=== PATIENT | male | born 1950 | race Caucasian/White ===

== ENCOUNTER → 2016-09-23 | Day surgery (SDC) | payer BC ==
[~2016-09-23] VITALS: Ht 182.9 cm; Wt 85.0 kg
[~2016-09-23] MED LIST: ASPI81TA28 PO; ATV/1 PO; BECL0.3A INH; CARB1SOL OP; CLIN300C2 PO; COSYNTROPIN INJ 1 MCG in SYRINGE 0 ML IV ONE; COSYNTROPIN IV SCH; DIPH25CA65 PO; FAMO20TA9 PO; FINA5TAB PO; GABA-113 PO; IBUP-1050 PO; LINA1TAB PO; LISI5TAB3 PO; METF-384 PO; METF1TAB53 PO; MYCO500T4 PO; OXYC-57 PO; POLY335019 PO; PROM1TAB6 PO; SENNTAB23 PO; TERA1CAP63 PO; TRIA0.1O12 TOP
[2016-09-23 08:13] VITALS: BP 119/70; PULSE 70; TEMP 36.1; O2SAT 97; Ht 182.9 cm; Wt 85.0 kg
[2016-09-23 09:40] VITALS: BP 122/74; PULSE 80; TEMP 36.6; O2SAT 96
== END | disposition home or self-care (01) ==
LOC: C.MTU 07:33
PROVIDERS: ATTEND Internal Medicine Nephrology
DX: E27.40 Unspecified adrenocortical insufficiency (principal); E87.1 Hypo-osmolality and hyponatremia

== ENCOUNTER → 2016-12-23 | Outpatient (CLI) | payer BC ==
[~2016-12-23] MED LIST changes: -CLIN300C2 PO; -COSYNTROPIN INJ 1 MCG in SYRINGE 0 ML IV ONE; -COSYNTROPIN IV SCH; -FAMO20TA9 PO; +GADAVIST IV PRN; -OXYC-57 PO
--- NOTE | 2016-12-23 14:34 | DIAGNOSTIC IMAGING REPORT ---
PITUITARY MRI COMBO HISTORY: ADRENAL INSUFFICIENCY,HYPONATREMIA TECHNIQUE: Multiplanar multisequence MRI of the pituitary gland was performed both before and after the intravenous administration of contrast. COMPARISON STUDY: None. FINDINGS: There is a 4 mm T2 hyperintense nonenhancing lesion along the anterior aspect of the pituitary gland. Otherwise, the pituitary gland is within normal limits. No enhancing masses identified. The pituitary stalk is normal in course and caliber. IMPRESSION: A 4 mm T2 hyperintense nonenhancing lesion within the anterior aspect of the pituitary gland consistent with a cyst. This favors a Rathke's cleft cyst. Electronically signed by: Cr Vann M.D. 12/23/2016 2:32 PM Dictated Date/Time: 12/23/2016 2:21 PM
== END | disposition home or self-care (01) ==
LOC: C.MRI 12:21
PROVIDERS: ATTEND Internal Medicine Endocrinology, Diabetes & Metabolism
DX: E27.40 Unspecified adrenocortical insufficiency (principal); E87.1 Hypo-osmolality and hyponatremia; E23.7 Disorder of pituitary gland, unspecified

== ENCOUNTER 2020-05-27 18:24 | Inpatient (IN) ==
[2020-05-27] MEDS ORDERED: PIPERACILLIN/TAZOBACTAM 4.5 GM/120 ML BAG IV ONE (18:48)
[2020-05-27] MEDS ORDERED: PIPERACILL/TAZOBAC CONSULT ACTIVE PRN (18:48)
--- NOTE | 2020-05-27 18:52 | Emergency Department Note ---
Impression & Plan Sepsis, Hypomagnesemia, Acute hyponatremia, Acute dehydration ED Provider Note NAME: RUPAL MILES AGE: 69 SEX: M : 1950 ARRIVES VIA: Walk-In INFORMANT: Patient, ED PROVIDER(S): Tony Sanchez MD Chief Complaint: Fever, weakness, confusion HPI: Patient does present with increasing weakness as well as fever. The patient was recently seen in the outpatient setting on Tuesday this was thought to be potentially due to taking steroids as he was placed on these by his PCP had some constipation and urinary retention patient reportedly has had some increasing confusion and fever. The patient does have mild nonspecific frontal headache approximate 4 out of 10 in nature. The patient did have some falls back on Tuesday. The patient has no known sick contacts is not vaccinated for Covid. Denies any chest pains or abdominal pain. Patient does endorse drinking 1 to 2 glasses of wine daily every day. Patient reportedly does have history of low sodium. Patient had urinalysis completed back on May 24 which was negative for blood or infection. Patient had a KUB completed which did not show evidence of bowel obstruction. ROS: See HPI for pertinent positives and negatives. A total of 10 systems were reviewed and otherwise negative. Past medical history: See below Surgical history: See below Social history: See below Physical Exam: GENERAL: Mildly ill in appearance, wearing glasses and a mask. Thin. EYE EXAM: Normal conjunctiva. PERRL, no anisocoria and EOM's grossly intact w/o pain. NECK: Supple, no nuchal rigidity, no adenopathy, non-tender. No signs of meningismus. LUNGS: Clear to auscultation. Normal chest wall mechanics. HEART: Tachycardic and regular, no MRG. ABDOMEN: Abdomen soft, non-tender, normo-active bowel sounds, no masses, no rebound or guarding. BACK: No CVA TTP. SKIN: No rashes and no bruising. UPPER EXTREMITIES: Upper extremities are grossly normal. LOWER EXTREMITIES: Grossly normal, no edema. NEURO EXAM: A&O x3, cranial nerves II-XII grossly intact, normal speech, moves all 4 extremities on command w/o issue. Differential diagnoses: Sepsis, UTI, pneumonia, metabolic, electrolyte abnormalities, cardiac sources, intracerebral event, toxicologic, neurologic, as well as other pathologies. Course: Patient was seen and evaluated the bedside. Full history physical exam was performed. EKG: Indication: Tachycardia Imaging Studies: See below Cardiac monitoring: An order was placed for continuous cardiac monitoring. The monitor shows a rate of 124 with sinus tachycardia rhythm. MDM: Patient did present with concern for confusion and fever. Blood work is obtained along with antibiotics and blood cultures. The patient was given IV fluids. Patient did have improvement in his fever and tachycardia. The patient is on mycophenolate for history of pemphigoid. This is per pharmacy review. Patient was covered with broad-spectrum antibiotics Zosyn and vancomycin. Covid negative. Chest x-ray clear. Patient has no abdominal pain. The patient did have a white count of 18 with hemoglobin 11.5. Kidney function is unremarkable with low sodium at 124. No priors for comparison but the patient does have a prior history of that. Magnesium slightly low at 1.3. This was ordered for replacement. Troponin not elevated. Ammonia within normal limits. MRSA screen negative. Pro-Tio not elevated. Given the patient's history of mycophenolate with fever and tachycardia with a white count I did talk with the on-call hospitalist and the patient was admitted to the medicine service by Dr. Bell. Past Med/Surg History Medical History (Updated 05/30/20 @ 00:07 by Background Daemon) Acute dehydration Acute hyponatremia BPH (benign prostatic hyperplasia) Bullous pemphigoid Chronic radicular lumbar pain Dehiscence of laminectomy incision Diabetes Foot drop, right Histoplasmosis retinitis HTN (hypertension) Hypertension Hypomagnesemia Hyponatremia Hyponatremia Leg pain, right Lumbar post-laminectomy syndrome Right foot sprain Sepsis Surgical History S/P lumbar laminectomy Social History Smoking Status: Never smoker Second Hand Exposure: No; Hx Alcohol Use: No Hx Substance Use: No Preferred Language: Slovenian Communication Ability: Effective Hearing Ability: Normal Salt Manager Required: No Beliefs That Will Affect Care: None Current Living Situation: Spouse Feels Safe at Home: Yes caffeine: Yes during the past year weight has: remained stable Assistive Devices: Cane Allergies Allergies Allergy/AdvReac Type Severity Reaction Status Date / Time adhesive Allergy Unknown very Verified 05/27/20 21:01 senstive skin Home Meds Home Medications Medication Instructions Recorded Confirmed carboxymethylcellulose sodium 1 % 2 drops OP DAILY PRN 10/24/17 05/27/20 eye liquid gel drops finasteride 5 mg tablet 5 mg PO DAILY 10/24/17 05/27/20 linagliptin 5 mg tablet 5 mg PO QAM 10/24/17 05/27/20 lisinopril 5 mg tablet 5 mg PO DAILY 10/24/17 05/27/20 terazosin 10 mg capsule 10 mg PO HS cap 10/24/17 05/27/20 triamcinolone acetonide 0.1 % 1 appln TOP BID PRN 10/24/17 05/27/20 topical ointment furosemide 20 mg tablet 20 mg PO DAILY 10/27/17 05/27/20 metformin 1,000 mg tablet 1,000 mg PO QAM tab 10/27/17 05/27/20 sodium chloride 1 gram tablet 2,000 mg PO TID tab 10/27/17 05/27/20 mycophenolate mofetil 500 mg tablet 1,000 mg PO BID PRN tab 01/23/18 05/27/20 gabapentin 300 mg capsule 300 mg PO AMHS cap 11/20/19 05/27/20 metformin 1,500 mg PO QPM 05/27/20 05/27/20 Previous Rx's Medication Instructions Recorded ciprofloxacin HCl 500 mg PO BID #14 tab 05/29/20 Results & Data (ED) Vital Signs Vital Signs - 24 hr 05/27/20 18:35 05/27/20 18:43 05/27/20 18:44 Temperature 38.4 C H Temperature Source Temporal Artery Scan Pulse Rate 121 H 137 H Pulse Rate [Apical] 124 H Pulse Rate from SpO2 Sensor Pulse Rhythm Respiratory Rate 16 26 H 25 H Respiratory Effort / Characteristics Non-Labored Spontaneous Respiratory Depth Normal Respiratory Pattern Regular Blood Pressure 115/65 122/75 Blood Pressure [Left Arm] 122/75 Blood Pressure Mean 81 90 Blood Pressure Mean [Left Arm] 90 Blood Pressure Position [Left Arm] Sitting Pulse Oximetry 94 97 Oxygen Delivery Method Room Air Sepsis Recent Fever Within 48 Hours Yes Sepsis New/Unexplained Change in Mental Status N/A Sepsis Action Taken by Nursing Physician Notified 05/27/20 18:47 05/27/20 18:50 05/27/20 19:00 Temperature Temperature Source Pulse Rate 134 H 122 H 112 H Pulse Rate [Apical] Pulse Rate from SpO2 Sensor Pulse Rhythm Respiratory Rate 20 25 H 21 Respiratory Effort / Characteristics Respiratory Depth Respiratory Pattern Blood Pressure Blood Pressure [Left Arm] Blood Pressure Mean Blood Pressure Mean [Left Arm] Blood Pressure Position [Left Arm] Pulse Oximetry Oxygen Delivery Method Sepsis Recent Fever Within 48 Hours Sepsis New/Unexplained Change in Mental Status Sepsis Action Taken by Nursing 05/27/20 19:10 05/27/20 19:14 05/27/20 19:15 Temperature Temperature Source Pulse Rate 107 H 106 H 105 H Pulse Rate [Apical] Pulse Rate from SpO2 Sensor 108 H 106 H Pulse Rhythm Respiratory Rate 15 18 20 Respiratory Effort / Characteristics Respiratory Depth Respiratory Pattern Blood Pressure 139/77 136/79 Blood Pressure [Left Arm] Blood Pressure Mean 97 98 Blood Pressure Mean [Left Arm] Blood Pressure Position [Left Arm] Pulse Oximetry 96 96 Oxygen Delivery Method Sepsis Recent Fever Within 48 Hours Sepsis New/Unexplained Change in Mental Status Sepsis Action Taken by Nursing 05/27/20 19:17 05/27/20 19:20 05/27/20 19:30 Temperature Temperature Source Pulse Rate 114 H 106 H 107 H Pulse Rate [Apical] Pulse Rate from SpO2 Sensor 106 H Pulse Rhythm Regular Respiratory Rate 20 21 21 Respiratory Effort / Characteristics Respiratory Depth Respiratory Pattern Blood Pressure 151/84 H Blood Pressure [Left Arm] Blood Pressure Mean 106 Blood Pressure Mean [Left Arm] Blood Pressure Position [Left Arm] Pulse Oximetry 98 98 Oxygen Delivery Method Room Air Sepsis Recent Fever Within 48 Hours Sepsis New/Unexplained Change in Mental Status Sepsis Action Taken by Nursing 05/27/20 19:31 05/27/20 19:40 05/27/20 19:45 Temperature Temperature Source Pulse Rate 108 H 100 H 100 H Pulse Rate [Apical] Pulse Rate from SpO2 Sensor Pulse Rhythm Respiratory Rate 21 23 20 Respiratory Effort / Characteristics Respiratory Depth Respiratory Pattern Blood Pressure 139/82 Blood Pressure [Left Arm] Blood Pressure Mean 101 Blood Pressure Mean [Left Arm] Blood Pressure Position [Left Arm] Pulse Oximetry Oxygen Delivery Method Sepsis Recent Fever Within 48 Hours Sepsis New/Unexplained Change in Mental Status Sepsis Action Taken by Nursing 05/27/20 19:50 05/27/20 19:52 05/27/20 20:00 Temperature Temperature Source Pulse Rate 101 H 95 H Pulse Rate [Apical] Pulse Rate from SpO2 Sensor Pulse Rhythm Respiratory Rate 20 20 21 Respiratory Effort / Characteristics Non-Labored Respiratory Depth Respiratory Pattern Blood Pressure 140/80 Blood Pressure [Left Arm] Blood Pressure Mean 100 Blood Pressure Mean [Left Arm] Blood Pressure Position [Left Arm] Pulse Oximetry 98 Oxygen Delivery Method Room Air Sepsis Recent Fever Within 48 Hours Sepsis New/Unexplained Change in Mental Status Sepsis Action Taken by Nursing 05/27/20 20:01 05/27/20 20:10 05/27/20 20:15 Temperature Temperature Source Pulse Rate 95 H 96 H 92 H Pulse Rate [Apical] Pulse Rate from SpO2 Sensor Pulse Rhythm Respiratory Rate 22 19 19 Respiratory Effort / Characteristics Respiratory Depth Respiratory Pattern Blood Pressure 119/76 Blood Pressure [Left Arm] Blood Pressure Mean 90 Blood Pressure Mean [Left Arm] Blood Pressure Position [Left Arm] Pulse Oximetry Oxygen Delivery Method Sepsis Recent Fever Within 48 Hours Sepsis New/Unexplained Change in Mental Status Sepsis Action Taken by Nursing 05/27/20 20:20 Temperature 37.6 C H Temperature Source Pulse Rate 91 H Pulse Rate [Apical] Pulse Rate from SpO2 Sensor Pulse Rhythm Respiratory Rate 17 Respiratory Effort / Characteristics Respiratory Depth Respiratory Pattern Blood Pressure Blood Pressure [Left Arm] Blood Pressure Mean Blood Pressure Mean [Left Arm] Blood Pressure Position [Left Arm] Pulse Oximetry Oxygen Delivery Method Sepsis Recent Fever Within 48 Hours Sepsis New/Unexplained Change in Mental Status Sepsis Action Taken by [facility] Medications Current Medication List: was personally reviewed by me Laboratory Data Attestation: I reviewed the patient's lab results. Result diagrams: 05/28/20 06:29 05/28/20 06:29 Lab Results 05/27/20 05/27/20 05/27/20 Range/Units 18:57 18:57 18:57 WBC 18.94 H (4.8-10.8) K/uL RBC 3.27 L (4.7-6.1) M/uL Hgb 11.5 L (14.0-18.0) g/dL Hct 31.1 L (42-52) % MCV 95.1 (80-100) fL MCH 35.2 H (25-34) pg MCHC 37.0 H (32-36) g/dL RDW Std Deviation 41.1 (36.4-46.3) fL RDW Coeff of Ike 11.9 (11.5-14.5) % Plt Count 214 (130-400) K/uL MPV 8.9 (7.4-10.4) fL Immature Gran % (Auto) 0.3 % Neut % (Auto) 88.2 % Lymph % (Auto) 7.0 % [place] % (Auto) 4.3 % Eos % (Auto) 0.1 % Baso % (Auto) 0.1 % Neut # (Auto) 16.71 H (1.4-6.5) K/uL Lymph # (Auto) 1.33 (1.2-3.4) K/uL [place] # (Auto) 0.82 H (0.11-0.59) K/uL Eos # (Auto) 0.02 (0-0.5) K/uL Baso # (Auto) 0.01 (0-0.2) K/uL Immature Gran # (Auto) 0.05 H (0.00-0.02) K/uL PT 9.8 (9.0-12.0) Seconds INR 1.0 (0.9-1.1) APTT 26.6 (21.0-31.0) Seconds PTT Ratio 1.0 Sodium 124 L (136-145) mmol/L Potassium 3.7 (3.5-5.1) mmol/L Chloride 92 L (98-107) mmol/L Carbon Dioxide 25 (21-32) mmol/L Anion Gap 8.0 (3-11) BUN 13 (7-18) mg/dl Creatinine 1.38 (0.6-1.4) mg/dl Est Cr Clr Drug Dosing 53.6 ml/min Est GFR ( Amer) 60.9 Est GFR (Non-Af Amer) 52.5 BUN/Creatinine Ratio 9.3 L (10-20) Glucose 227 H (70-99) mg/dl Osmolality (280-300) mOsm/kg Lactate (0.4-2.0) mmol/L Calcium 9.0 (8.5-10.1) mg/dl Magnesium 1.3 L (1.8-2.4) mg/dl Total Bilirubin 0.7 (0.2-1) mg/dl AST 9 L (15-37) U/L ALT 21 (12-78) U/L Alkaline Phosphatase 76 (45-117) U/L Ammonia (11-32) umol/L Troponin I < 0.015 (0-0.045) ng/ml Total Protein 6.4 (6.4-8.2) gm/dl Albumin 3.3 L (3.4-5.0) gm/dl Globulin 3.1 (2.5-4.0) gm/dl Albumin/Globulin Ratio 1.1 (0.9-2) Procalcitonin (0-0.5) ng/ml Urine Color Urine Appearance (Clear) Urine pH (4.5-7.5) Ur Specific Harris (1.000-1.030) Urine Protein (Negative) Urine Glucose (UA) (Negative) Urine Ketones (Negative) Urine Blood (Negative) Urine Nitrite (Negative) Urine Bilirubin (Negative) Urine Urobilinogen (Negative) Ur Leukocyte Esterase (Negative) Urine WBC (Auto) (0-5) /hpf Urine RBC (Auto) (0-4) /hpf U Hyaline Cast (Auto) (0-5) /lpf U Epithel Cells (Auto) (0-5) /lpf Urine Bacteria (Auto) (Negative) Urine Osmolality (500-800) mOsm/kg Nasal Screen MRSA (PCR) (Negative) COVID-19 Eval Order SARS-CoV-2 (PCR) (Negative) Influenza Type A (PCR) (Neg) Influenza Type B (PCR) (Neg) RSV (RT-PCR) (Neg) 05/27/20 05/27/20 05/27/20 Range/Units 18:57 19:18 19:18 WBC (4.8-10.8) K/uL RBC (4.7-6.1) M/uL Hgb (14.0-18.0) g/dL Hct (42-52) % MCV (80-100) fL MCH (25-34) pg MCHC (32-36) g/dL RDW Std Deviation (36.4-46.3) fL RDW Coeff of Ike (11.5-14.5) % Plt Count (130-400) K/uL MPV (7.4-10.4) fL Immature Gran % (Auto) % Neut % (Auto) % Lymph % (Auto) % [place] % (Auto) % Eos % (Auto) % Baso % (Auto) % Neut # (Auto) (1.4-6.5) K/uL Lymph # (Auto) (1.2-3.4) K/uL [place] # (Auto) (0.11-0.59) K/uL Eos # (Auto) (0-0.5) K/uL Baso # (Auto) (0-0.2) K/uL Immature Gran # (Auto) (0.00-0.02) K/uL PT (9.0-12.0) Seconds INR (0.9-1.1) APTT (21.0-31.0) Seconds PTT Ratio Sodium (136-145) mmol/L Potassium (3.5-5.1) mmol/L Chloride (98-107) mmol/L Carbon Dioxide (21-32) mmol/L Anion Gap (3-11) BUN (7-18) mg/dl Creatinine (0.6-1.4) mg/dl Est Cr Clr Drug Dosing ml/min Est GFR ( Amer) Est GFR (Non-Af Amer) BUN/Creatinine Ratio (10-20) Glucose (70-99) mg/dl Osmolality (280-300) mOsm/kg Lactate 1.7 (0.4-2.0) mmol/L Calcium (8.5-10.1) mg/dl Magnesium (1.8-2.4) mg/dl Total Bilirubin (0.2-1) mg/dl AST (15-37) U/L ALT (12-78) U/L Alkaline Phosphatase (45-117) U/L Ammonia 12.5 (11-32) umol/L Troponin I (0-0.045) ng/ml Total Protein (6.4-8.2) gm/dl Albumin (3.4-5.0) gm/dl Globulin (2.5-4.0) gm/dl Albumin/Globulin Ratio (0.9-2) Procalcitonin 0.30 (0-0.5) ng/ml Urine Color Urine Appearance (Clear) Urine pH (4.5-7.5) Ur Specific Harris (1.000-1.030) Urine Protein (Negative) Urine Glucose (UA) (Negative) Urine Ketones (Negative) Urine Blood (Negative) Urine Nitrite (Negative) Urine Bilirubin (Negative) Urine Urobilinogen (Negative) Ur Leukocyte Esterase (Negative) Urine WBC (Auto) (0-5) /hpf Urine RBC (Auto) (0-4) /hpf U Hyaline Cast (Auto) (0-5) /lpf U Epithel Cells (Auto) (0-5) /lpf Urine Bacteria (Auto) (Negative) Urine Osmolality (500-800) mOsm/kg Nasal Screen MRSA (PCR) (Negative) COVID-19 Eval Order SARS-CoV-2 (PCR) (Negative) Influenza Type A (PCR) (Neg) Influenza Type B (PCR) (Neg) RSV (RT-PCR) (Neg) 05/27/20 05/27/20 05/27/20 Range/Units 19:18 19:25 19:25 WBC (4.8-10.8) K/uL RBC (4.7-6.1) M/uL Hgb (14.0-18.0) g/dL Hct (42-52) % MCV (80-100) fL MCH (25-34) pg MCHC (32-36) g/dL RDW Std Deviation (36.4-46.3) fL RDW Coeff of Ike (11.5-14.5) % Plt Count (130-400) K/uL MPV (7.4-10.4) fL Immature Gran % (Auto) % Neut % (Auto) % Lymph % (Auto) % [place] % (Auto) % Eos % (Auto) % Baso % (Auto) % Neut # (Auto) (1.4-6.5) K/uL Lymph # (Auto) (1.2-3.4) K/uL [place] # (Auto) (0.11-0.59) K/uL Eos # (Auto) (0-0.5) K/uL Baso # (Auto) (0-0.2) K/uL Immature Gran # (Auto) (0.00-0.02) K/uL PT (9.0-12.0) Seconds INR (0.9-1.1) APTT (21.0-31.0) Seconds PTT Ratio Sodium (136-145) mmol/L Potassium (3.5-5.1) mmol/L Chloride (98-107) mmol/L Carbon Dioxide (21-32) mmol/L Anion Gap (3-11) BUN (7-18) mg/dl Creatinine (0.6-1.4) mg/dl Est Cr Clr Drug Dosing ml/min Est GFR ( Amer) Est GFR (Non-Af Amer) BUN/Creatinine Ratio (10-20) Glucose (70-99) mg/dl Osmolality 269 L (280-300) mOsm/kg Lactate (0.4-2.0) mmol/L Calcium (8.5-10.1) mg/dl Magnesium (1.8-2.4) mg/dl Total Bilirubin (0.2-1) mg/dl AST (15-37) U/L ALT (12-78) U/L Alkaline Phosphatase (45-117) U/L Ammonia (11-32) umol/L Troponin I (0-0.045) ng/ml Total Protein (6.4-8.2) gm/dl Albumin (3.4-5.0) gm/dl Globulin (2.5-4.0) gm/dl Albumin/Globulin Ratio (0.9-2) Procalcitonin (0-0.5) ng/ml Urine Color Urine Appearance (Clear) Urine pH (4.5-7.5) Ur Specific Harris (1.000-1.030) Urine Protein (Negative) Urine Glucose (UA) (Negative) Urine Ketones (Negative) Urine Blood (Negative) Urine Nitrite (Negative) Urine Bilirubin (Negative) Urine Urobilinogen (Negative) Ur Leukocyte Esterase (Negative) Urine WBC (Auto) (0-5) /hpf Urine RBC (Auto) (0-4) /hpf U Hyaline Cast (Auto) (0-5) /lpf U Epithel Cells (Auto) (0-5) /lpf Urine Bacteria (Auto) (Negative) Urine Osmolality (500-800) mOsm/kg Nasal Screen MRSA (PCR) (Negative) COVID-19 Eval Order CovFluRsv at [facility] SARS-CoV-2 (PCR) NEGATIVE (Negative) Influenza Type A (PCR) Negative (Neg) Influenza Type B (PCR) Negative (Neg) RSV (RT-PCR) Negative (Neg) 05/27/20 05/27/20 05/27/20 Range/Units 19:25 21:10 21:10 WBC (4.8-10.8) K/uL RBC (4.7-6.1) M/uL Hgb (14.0-18.0) g/dL Hct (42-52) % MCV (80-100) fL MCH (25-34) pg MCHC (32-36) g/dL RDW Std Deviation (36.4-46.3) fL RDW Coeff of Ike (11.5-14.5) % Plt Count (130-400) K/uL MPV (7.4-10.4) fL Immature Gran % (Auto) % Neut % (Auto) % Lymph % (Auto) % [place] % (Auto) % Eos % (Auto) % Baso % (Auto) % Neut # (Auto) (1.4-6.5) K/uL Lymph # (Auto) (1.2-3.4) K/uL [place] # (Auto) (0.11-0.59) K/uL Eos # (Auto) (0-0.5) K/uL Baso # (Auto) (0-0.2) K/uL Immature Gran # (Auto) (0.00-0.02) K/uL PT (9.0-12.0) Seconds INR (0.9-1.1) APTT (21.0-31.0) Seconds PTT Ratio Sodium (136-145) mmol/L Potassium (3.5-5.1) mmol/L Chloride (98-107) mmol/L Carbon Dioxide (21-32) mmol/L Anion Gap (3-11) BUN (7-18) mg/dl Creatinine (0.6-1.4) mg/dl Est Cr Clr Drug Dosing ml/min Est GFR ( Amer) Est GFR (Non-Af Amer) BUN/Creatinine Ratio (10-20) Glucose (70-99) mg/dl Osmolality (280-300) mOsm/kg Lactate (0.4-2.0) mmol/L Calcium (8.5-10.1) mg/dl Magnesium (1.8-2.4) mg/dl Total Bilirubin (0.2-1) mg/dl AST (15-37) U/L ALT (12-78) U/L Alkaline Phosphatase (45-117) U/L Ammonia (11-32) umol/L Troponin I (0-0.045) ng/ml Total Protein (6.4-8.2) gm/dl Albumin (3.4-5.0) gm/dl Globulin (2.5-4.0) gm/dl Albumin/Globulin Ratio (0.9-2) Procalcitonin (0-0.5) ng/ml Urine Color Yellow Urine Appearance Clear (Clear) Urine pH 6.5 (4.5-7.5) Ur Specific Harris 1.014 (1.000-1.030) Urine Protein Trace H (Negative) Urine Glucose (UA) 1+ H (Negative) Urine Ketones Trace H (Negative) Urine Blood 1+ H (Negative) Urine Nitrite Negative (Negative) Urine Bilirubin Negative (Negative) Urine Urobilinogen Negative (Negative) Ur Leukocyte Esterase 2+ H (Negative) Urine WBC (Auto) >30 H (0-5) /hpf Urine RBC (Auto) 0-4 (0-4) /hpf U Hyaline Cast (Auto) 0 (0-5) /lpf U Epithel Cells (Auto) 0-5 (0-5) /lpf Urine Bacteria (Auto) 3+ H (Negative) Urine Osmolality 334 L (500-800) mOsm/kg Nasal Screen MRSA (PCR) Negative (Negative) COVID-19 Eval Order SARS-CoV-2 (PCR) (Negative) Influenza Type A (PCR) (Neg) Influenza Type B (PCR) (Neg) RSV (RT-PCR) (Neg) Administered Medications Discontinued Medications Acetaminophen (Acetaminophen 325 Mg Tab) 650 mg PO Q4H PRN PRN Reason: pain/fever Stop: 06/26/20 23:39 Last Admin: 05/29/20 00:49 Dose: 650 mg Documented by: [id number] Finasteride (Finasteride 5 Mg Tab) 5 mg PO PM HEATHER Stop: 06/27/20 00:00 Last Admin: 05/28/20 20:14 Dose: 5 mg Documented by: [id number] Admin: 05/28/20 00:16 Dose: 5 mg Documented by: [id number] Furosemide (Furosemide 20 Mg Tab) 20 mg PO DAILY HEATHER Stop: 06/27/20 08:59 Last Admin: 05/29/20 09:09 Dose: 20 mg Documented by: [id number] Admin: 05/28/20 09:42 Dose: 20 mg Documented by: [id number] Gabapentin (Gabapentin 300 Mg Cap) 300 mg PO AMHS HEATHER Stop: 06/27/20 08:59 Last Admin: 05/29/20 09:09 Dose: 300 mg Documented by: [id number] Admin: 05/28/20 20:13 Dose: 300 mg Documented by: [id number] Admin: 05/28/20 09:41 Dose: 300 mg Documented by: [id number] Sodium Chloride (Nss 1000ml) 1,000 mls @ 999 mls/hr IV .Q1H1M HEATHER Stop: 05/27/20 19:48 Last Infusion: 05/27/20 20:57 Dose: 0 mls/hr Documented by: [id number] Admin: 05/27/20 19:45 Dose: 999 mls/hr Documented by: [id number] Sodium Chloride (Nss 1000ml) 1,000 mls @ 999 mls/hr IV .Q1H1M HEATHER Stop: 05/27/20 20:48 Last Infusion: 05/27/20 20:58 Dose: 0 mls/hr Documented by: [id number] Admin: 05/27/20 19:47 Dose: 999 mls/hr Documented by: [id number] Piperacillin Sod/Tazobactam Sod (Zosyn) 4.5 gm in 120 mls @ 240 mls/hr IV NOW ONE Stop: 05/27/20 19:17 Last Infusion: 05/27/20 20:58 Dose: 0 mls/hr Documented by: [id number] Admin: 05/27/20 19:47 Dose: 240 mls/hr Documented by: [id number] Acetaminophen (Ofirmev) 1,000 mg in 100 mls @ 400 mls/hr IV NOW STA Stop: 05/27/20 19:30 Last Infusion: 05/27/20 20:57 Dose: 0 mls/hr Documented by: [id number] Admin: 05/27/20 19:24 Dose: 400 mls/hr Documented by: [id number] Vancomycin HCl 2,250 mg/ (Sodium Chloride) 545 mls @ 200 mls/hr IV NOW ONE Stop: 05/27/20 21:59 Last Infusion: 05/28/20 00:07 Dose: 0 mls/hr Documented by: [id number] Admin: 05/27/20 20:23 Dose: 200 mls/hr Documented by: [id number] Piperacillin Sod/Tazobactam (Sod 3.375 gm/ Dextrose) 115 mls @ 28.75 mls/hr IV Q8H [facility]; Protocol Stop: 06/07/20 00:00 Last Infusion: 05/29/20 12:52 Dose: 0 mls/hr Documented by: [id number] Admin: 05/29/20 09:15 Dose: 28.8 mls/hr Documented by: [id number] Infusion: 05/29/20 04:02 Dose: 0 mls/hr Documented by: [id number] Admin: 05/29/20 00:02 Dose: 28.8 mls/hr Documented by: [id number] Infusion: 05/28/20 20:42 Dose: 0 mls/hr Documented by: [id number] Admin: 05/28/20 16:42 Dose: 28.8 mls/hr Documented by: [id number] Infusion: 05/28/20 12:24 Dose: 0 mls/hr Documented by: [id number] Admin: 05/28/20 08:17 Dose: 28.8 mls/hr Documented by: [id number] Infusion: 05/28/20 04:40 Dose: 0 mls/hr Documented by: [id number] Admin: 05/28/20 00:17 Dose: 28.8 mls/hr Documented by: [id number] Vancomycin HCl 1,000 mg/ (Sodium Chloride) 270 mls @ 200 mls/hr IV Q12H HEATHER Stop: 06/07/20 07:59 Last Infusion: 05/28/20 09:45 Dose: 0 mls/hr Documented by: [id number] Admin: 05/28/20 08:20 Dose: 200 mls/hr Documented by: [id number] Insulin Aspart (Insulin Aspart 100 Units/Ml 3 Ml Pen) 0 units SC ACHS HEATHER Stop: 06/27/20 07:29 Last Admin: 05/29/20 12:51 Dose: Not Given Documented by: [id number] Admin: 05/29/20 09:11 Dose: 4 units Documented by: [id number] Cosigned by: [id number] Admin: 05/28/20 21:06 Dose: 1 units Documented by: [id number] Cosigned by: [id number] Admin: 05/28/20 17:57 Dose: 3 units Documented by: [id number] Cosigned by: [id number] Admin: 05/28/20 13:06 Dose: 2 units Documented by: [id number] Cosigned by: [id number] Admin: 05/28/20 09:30 Dose: 2 units Documented by: [id number] Cosigned by: [id number] Insulin Glargine (Insulin Glargine Solostar 100 Units/Ml 3 Ml Pen) 5 units SC BID [facility] Stop: 06/27/20 08:59 Last Admin: 05/29/20 09:10 Dose: 5 units Documented by: [id number] Cosigned by: [id number] Admin: 05/28/20 21:05 Dose: 5 units Documented by: [id number] Cosigned by: [id number] Admin: 05/28/20 09:30 Dose: 5 units Documented by: [id number] Cosigned by: [id number] Lisinopril (Lisinopril 5 Mg Tab) 5 mg PO DAILY [facility] Stop: 06/27/20 08:59 Last Admin: 05/29/20 09:08 Dose: 5 mg Documented by: [id number] Admin: 05/28/20 09:41 Dose: 5 mg Documented by: [id number] Sodium Chloride (Sodium Chloride 1 Gm Tablet) 2 gm PO TID [facility] Stop: 06/27/20 08:59 Last Admin: 05/29/20 13:21 Dose: 2 gm Documented by: [id number] Admin: 05/29/20 09:09 Dose: 2 gm Documented by: [id number] Admin: 05/28/20 20:13 Dose: 2 gm Documented by: [id number] Admin: 05/28/20 14:37 Dose: 2 gm Documented by: [id number] Admin: 05/28/20 09:41 Dose: 2 gm Documented by: [id number] Terazosin HCl (Terazosin Hcl 5 Mg Cap) 10 mg PO HS [facility] Stop: 06/27/20 20:59 Last Admin: 05/28/20 20:14 Dose: 10 mg Documented by: [id number] Imaging Data Radiologist's Impression: Chest X-Ray 05/27/20 18:48 XR chest 1V portable HISTORY: SEPSIS COMPARISON: Chest 11/23/2018. FINDINGS: No pneumothorax. No pleural effusions. The heart is normal in size. No evidence for pulmonary edema. There are low lung volumes. A few bibasilar linear densities favor scarring or atelectasis. Otherwise, no focal lung consolidations to suggest pneumonia. IMPRESSION: Low lung volumes with bibasilar linear densities which favor scarring or atelectasis. Otherwise, no focal lung consolidations to suggest pneumonia. ACT 112: Negative or not required by law. Electronically signed by: Cr Vann M.D. 05/27/2020 8:01 PM Discharge Plan Visit Data Chief Complaint: Illness Stated Complaint: CONFUSION, FEVER, WEAKNESS ED Provider: Tony Sanchez Discharge Problem: Sepsis, Hypomagnesemia, Acute hyponatremia, Acute dehydration Patient Disposition: Admitted As Inpatient Condition: Good Discharge Instructions Interventions: ED Discharge Assessment Last Done: 05/27/20 23:00
[2020-05-27] MEDS ORDERED: SODIUM CHLORIDE 0.9% 1000ML 1,000 ML IV SCH ×2 (19:00→19:48)
[2020-05-27 19:16] LABS: Basophils # (auto) 0.01 K/uL (0-0.2); Basophils % (auto) 0.1 %; Eosinophils # (auto) 0.02 K/uL (0-0.5); Eosinophils % (auto) 0.1 %; Hematocrit (blood only) 31.1 % (42-52); Hemoglobin 11.5 g/dL (14.0-18.0); Immature Granulocytes # (auto) 0.05 K/uL (0.00-0.02); Immature Granulocytes % (auto) 0.3 %; Lymphocytes # (auto) 1.33 K/uL (1.2-3.4); Mean Corpuscular Hemoglobin 35.2 pg (25-34); Mean Corpuscular Volume 95.1 fL (80-100); Mean Platelet Volume 8.9 fL (7.4-10.4); Monocytes # (auto) 0.82 K/uL (0.11-0.59); Monocytes % (auto) 4.3 %; Neutrophils # (auto) 16.71 K/uL (1.4-6.5); Neutrophils % (auto) 88.2 %; Platelet Count 214 K/uL (130-400); RDW Coefficient of Variation 11.9 % (11.5-14.5); RDW Standard Deviation 41.1 fL (36.4-46.3); Red Blood Count 3.27 M/uL (4.7-6.1); White Blood Count 18.94 K/uL (4.8-10.8)
[2020-05-27] MEDS ORDERED: VANCOMYCIN HCL 2,250 MG in SODIUM CHLORIDE 0.9% 500 ML IV ONE (19:16)
[2020-05-27] MEDS ORDERED: ACETAMINOPHEN 1,000 MG/100 ML VIAL IV STA (19:16)
[2020-05-27] MEDS ORDERED: VANCOMYCIN CONSULT ACTIVE PRN (19:16)
[2020-05-27 19:31] LABS: Partial Thromboplastin Time 26.6 Seconds (21.0-31.0); Prothrombin Time 9.8 Seconds (9.0-12.0)
[2020-05-27 19:42] LABS: Alanine Aminotransferase 21 U/L (12-78); Albumin Level 3.3 gm/dl (3.4-5.0); Aspartate Aminotransferase 9 U/L (15-37); BUN Creatinine Ratio 9.3 (10-20); Blood Urea Nitrogen 13 mg/dl (7-18); Carbon Dioxide 25 mmol/L (21-32); Chloride 92 mmol/L (98-107); Creatinine Clr Calc Pharmacy 53.6 ml/min; Est GFR (African American) 60.9; Est GFR (Non-African American) 52.5; Glucose 227 mg/dl (70-99); Magnesium 1.3 mg/dl (1.8-2.4); Potassium 3.7 mmol/L (3.5-5.1); Sodium 124 mmol/L (136-145)
[2020-05-27 19:47] LABS: Albumin Globulin Ratio 1.1 (0.9-2); Alkaline Phosphatase 76 U/L (45-117); Bilirubin,Total 0.7 mg/dl (0.2-1); Globulin 3.1 gm/dl (2.5-4.0); Total Protein 6.4 gm/dl (6.4-8.2); Troponin I < 0.015 ng/ml (0-0.045)
--- NOTE | 2020-05-27 20:03 | XRay Report ---
XR chest 1V portable HISTORY: SEPSIS COMPARISON: Chest 11/23/2018. FINDINGS: No pneumothorax. No pleural effusions. The heart is normal in size. No evidence for pulmona ry edema. There are low lung volumes. A few bibasilar linear densities favor scarring or atelectasis. Otherwise, no focal lung consolidations to suggest pneumonia. IMPRESSION: Low lung volumes with bibasilar linear densities which favor scarring or atelectasis. Otherwise, no f ocal lung consolidations to suggest pneumonia. ACT 112: Negative or not required by law. Electronically signed by: Cr Vann M.D. 05/27/2020 8:01 PM
[2020-05-27 20:38] LABS: Influenza A virus by PCR Negative (Neg); Influenza B virus by PCR Negative (Neg); RSV by PCR Negative (Neg); SARS CoV2 RNA(COVID-19) InHosp NEGATIVE (Negative)
[2020-05-27 21:52] LABS: Appearance Urine Clear (Clear); Bacteria Urine Automated 3+ (Negative); Bilirubin Urine Negative (Negative); Blood Urine 1+ (Negative); Cast Urine Automated 0 /lpf (0-5); Color Urine Yellow; Epithelial Cell Urine Auto 0-5 /lpf (0-5); Glucose Urine UA 1+ (Negative); Ketones Urine Trace (Negative); Leukocyte Esterase Urine 2+ (Negative); Nitrite Urine Negative (Negative); Protein Urine Trace (Negative); RBC Urine Automated 0-4 /hpf (0-4); Specific Gravity Urine 1.014 (1.000-1.030); Urobilinogen Urine Negative (Negative); WBC Urine Automated >30 /hpf (0-5); pH Urine 6.5 (4.5-7.5)
--- NOTE | 2020-05-27 23:34 | History & Physical Report ---
Date of Service May 27, 2020 Assessment & Plan Admission and Anticipated Discharge Date Admission Date: May 27, 2020 69 yo M w/ pMHx. of DM II, BPH with urinary retention, HTN presenting with weakness, fevers along with UA concerning for urosepsis Complicated UTI possibly secondary to urinary retention and/or catheterization UA w/ 3+ bacteria, LCE, WBC & lactate 1.7 - continue Vancomycin and Zosyn for now, narrow with u. culture results - trend fever curve, VS and leukocytosis (although pt. is taking steroids) - f/u blood cultures Acute metabolic encephalopathy likely 2/2 acute infection - continue to monitor for improvement as we address his current infection Hyponatremia 124, mild symptoms of fatigue, acute on chronic euvolemic on exam after 2L in ED, holding further fluid resuscitation at this time serum osm low @ 269 w/ u osm low at 334 - potentially SIADH - continue home salt tabs - continue to monitor for now BPH with urinary retention - order for bladder scan as needed - continue home meds including finasteride and Terazosin - holding Benadryl DM II, on steroids - held home oral meds - ordered sliding scale and basal - continue to monitor BSG HTN - continue home Lisinopril DVT: SCD's and ambulation Code: full Diet: CC DMII History of Present Illness Chief Complaint: weakness Primary Care Provider: Link Castañeda MD Jean-Pierre Burgos is here for increasing weakness and fever. He had a fever a couple days ago and was in the hospital last on Tuesday when he had a catheter placed due to BPH. He has been confused and forgetting things and dehydrated. He endorses dysuria and urgency without frequency. He has not had much PO intake lately. He has been on steroids for a rash that was started by his primary team. He has a history of low sodium and no clear diagnosis on prior evaluations. The lowest his sodium has been was 128 in the past. ED course: 2L fluid bolus vanc and zosyn started Allergies Allergy/AdvReac Type Severity Reaction Status Date / Time adhesive Allergy Unknown very Verified 05/27/20 21:01 senstive skin Home Medications Medication Instructions Recorded Confirmed Type carboxymethylcellulose sodium 1 % 2 drops OP DAILY PRN 10/24/17 05/27/20 History eye liquid gel drops finasteride 5 mg tablet 5 mg PO DAILY 10/24/17 05/27/20 History linagliptin 5 mg tablet 5 mg PO QAM 10/24/17 05/27/20 History lisinopril 5 mg tablet 5 mg PO DAILY 10/24/17 05/27/20 History terazosin 10 mg capsule 10 mg PO HS cap 10/24/17 05/27/20 History triamcinolone acetonide 0.1 % 1 appln TOP BID PRN 10/24/17 05/27/20 History topical ointment furosemide 20 mg tablet 20 mg PO DAILY 10/27/17 05/27/20 History metformin 1,000 mg tablet 1,000 mg PO QAM tab 10/27/17 05/27/20 History sodium chloride 1 gram tablet 2,000 mg PO TID tab 10/27/17 05/27/20 History mycophenolate mofetil 500 mg tablet 1,000 mg PO BID PRN tab 01/23/18 05/27/20 History diphenhydramine HCl 25 mg tablet 25 mg PO AMHS tab 11/20/19 05/27/20 History gabapentin 300 mg capsule 300 mg PO AMHS cap 11/20/19 05/27/20 History metformin 1,500 mg PO QPM 05/27/20 05/27/20 History Past Med/Surg History Medical History BPH (benign prostatic hyperplasia) Bullous pemphigoid Chronic radicular lumbar pain Dehiscence of laminectomy incision Diabetes Foot drop, right Histoplasmosis retinitis HTN (hypertension) Hypertension Hyponatremia Hyponatremia Leg pain, right Lumbar post-laminectomy syndrome Right foot sprain Surgical History S/P lumbar laminectomy Social History Smoking Status: Never smoker Second Hand Exposure: No; Do You Dip or Chew Tobacco: No; Hx Alcohol Use: No Hx Substance Use: No Preferred Language: Austrian Communication Ability: Effective Hearing Ability: Normal Bearing Ring Assembler Required: No Beliefs That Will Affect Care: None Current Living Situation: Spouse Other Information That Helps Us Care for You: No Feels Safe at Home: Yes Safety Concerns: Feels Safe At This Time caffeine: Yes during the past year weight has: remained stable Assistive Devices: Cane and Glasses Review of Systems Review of Systems: Constitutional: denies nausea, vomiting admits fevers, chills, and fatigue Head: denies LOC, headache, vision changes admits trauma (with fall on Tuesday) and confusion Neuro: denies syncope, slurring of speech ENT: denies stuffiness, sneezing, sore throat (does have dry throat) Cardaic: denies chest pain, palpitations Pulm.: denies cough, shortness of breath GI: denies abdominal pain admits constipation previously (LBM today) : per HPI Physical Exam Constitutional: well developed and well nourished; no acute distress Eyes: PERRL, conjunctivae normal, anicteric sclerae ENMT: - moist mucus membranes - normal oropharynx on exam, no lesion Neck: normal visual inspection Respiratory: normal respiratory effort, lungs clear to auscultation Cardiovascular: RRR, no murmur, no edema Gastrointestinal (Abdomen): soft and nTTP in all quadrants Skin: does have fine reticular rash of the lower extremity that is a light pick color and slightly raised Neurologic: no focal motor deficits Psychiatric: Orientation: alert Results & Data Results & Data ([facility]) Vital Signs (Past 12 Hours) Vital Signs Temp Pulse Pulse Resp BP BP Pulse Ox 05/27/20 22:53 80 18 05/27/20 22:52 83 19 138/77 05/27/20 22:31 78 17 98 05/27/20 22:30 79 20 122/81 98 05/27/20 22:20 79 15 98 05/27/20 22:15 80 22 127/79 96 05/27/20 22:10 82 19 97 05/27/20 22:01 78 18 98 05/27/20 22:00 79 20 118/70 98 05/27/20 21:50 81 20 96 05/27/20 21:45 79 20 150/89 H 98 05/27/20 21:40 79 16 98 05/27/20 21:31 86 21 133/83 96 05/27/20 21:30 84 20 95 05/27/20 21:20 84 14 96 05/27/20 21:15 90 13 147/78 H 98 05/27/20 21:01 90 18 96 05/27/20 21:00 37.6 C H 89 18 140/82 95 05/27/20 20:50 98 H 18 05/27/20 20:45 91 H 20 134/83 05/27/20 20:40 88 22 05/27/20 20:30 92 H 17 127/74 05/27/20 20:20 37.6 C H 91 H 17 05/27/20 20:15 92 H 19 119/76 05/27/20 20:10 96 H 19 05/27/20 20:01 95 H 22 05/27/20 20:00 95 H 21 140/80 05/27/20 19:52 20 98 05/27/20 19:50 101 H 20 05/27/20 19:45 100 H 20 139/82 05/27/20 19:40 100 H 23 05/27/20 19:31 108 H 21 05/27/20 19:30 107 H 21 151/84 H 05/27/20 19:20 106 H 21 98 05/27/20 19:17 114 H 20 98 05/27/20 19:15 105 H 20 136/79 96 05/27/20 19:14 106 H 18 139/77 96 05/27/20 19:10 107 H 15 05/27/20 19:00 112 H 21 05/27/20 18:50 122 H 25 H 05/27/20 18:47 134 H 20 05/27/20 18:44 124 H 25 H 122/75 97 05/27/20 18:43 137 H 26 H 122/75 05/27/20 18:35 38.4 C H 121 H 16 115/65 94 CBC Results Results Complete Blood Count Results: RBC 2.85 M/uL (4.7-6.1) L 05/28/20 WBC 13.27 K/uL (4.8-10.8) H 05/28/20 Hgb 9.8 g/dL (14.0-18.0) L 05/28/20 Hct 27.1 % (42-52) L 05/28/20 Plt Count 191 K/uL (130-400) 05/28/20 Chemistry (BMP) Results BMP Results: Sodium 131 mmol/L (136-145) L 05/28/20 Potassium 3.5 mmol/L (3.5-5.1) 05/28/20 Chloride 99 mmol/L (98-107) 05/28/20 BUN 11 mg/dl (7-18) 05/28/20 Creatinine 1.19 mg/dl (0.6-1.4) 05/28/20 Glucose 189 mg/dl (70-99) H 05/28/20 Code Status & VTE Plan VTE Prophylaxis Plan VTE Prophylaxis will be ordered: Yes Supervising Physician Co-Signing Physician Notes Attending addendum: I have physically seen this patient, have supervised the medical residents activities, and agree with the H&P unless as otherwise noted. Assessment and Plan: UTI/BPH with LUTS urinary retention- Continue empiric vancomycin and Zosyn begun in the ED Continue finasteride and Terazosin Follow urine culture and sensitivities Follow blood cultures Acute metabolic encephalopathy- Likely secondary to UTI Continue to biotics as noted, hydrate with IV fluids and follow clinically Hyponatremia- Chronic condition Sodium 124 upon admission serum osmolality 269, urine awesome 334. Has already received 2 L of normal saline from the ED Repeat laboratories in a.m. Continue home salt tablets Remaining orders and notations as noted Resident Activity Tracking Resident Involvement: Resident Care Provided Care Provided: Adult Hospital Medicine
[2020-05-27] MEDS ORDERED: MYCOPHENOLATE MOFETIL 250 MG CAP PO PRN (23:40)
[2020-05-27] MEDS ORDERED: POLYETHYLENE (MIRALAX) 17 GM PACK PO PRN (23:40)
[2020-05-27] MEDS ORDERED: ACETAMINOPHEN 325 MG TAB PO PRN (23:40)
[2020-05-27] MEDS ORDERED: TRIAMCINOLONE ACET 0.1% OINT 15 GM TUBE TOP PRN (23:40)
[2020-05-27] MEDS ORDERED: GLUCOSE 10 TABS/TUBE PO PRN (23:48)
[2020-05-27] MEDS ORDERED: DEXTROSE 50% 50 ML SYRINGE IV PRN (23:48)
[2020-05-27] MEDS ORDERED: CARBOHYDRATES FOR HYPOGLYCEMIA PO PRN (23:48)
[2020-05-27] MEDS ORDERED: GLUCOSE 40% GEL 15 GM TUBE PO PRN (23:48)
[2020-05-27] MEDS ORDERED: GLUCAGON FOR INJ 1 MG VIAL SQ PRN (23:48)
[2020-05-28] MEDS: FINASTERIDE 5 MG TAB PO SCH ×2 (00:16→20:14)
[2020-05-28] MEDS: PIPERACILLIN/TAZOBACTAM 3.375 GM in DEXTROSE 5% 100 ML IV SCH ×3 (00:17→16:42)
[2020-05-28 06:55] LABS: Basophils # (auto) 0.02 K/uL (0-0.2); Basophils % (auto) 0.2 %; Eosinophils # (auto) 0.12 K/uL (0-0.5); Eosinophils % (auto) 0.9 %; Hematocrit (blood only) 27.1 % (42-52); Hemoglobin 9.8 g/dL (14.0-18.0); Immature Granulocytes # (auto) 0.02 K/uL (0.00-0.02); Immature Granulocytes % (auto) 0.2 %; Lymphocytes # (auto) 0.61 K/uL (1.2-3.4); Lymphocytes % (auto) 4.6 %; Mean Corpuscular Hemoglobin 34.4 pg (25-34); Mean Corpuscular Hgb Conc 36.2 g/dL (32-36); Mean Corpuscular Volume 95.1 fL (80-100); Mean Platelet Volume 8.9 fL (7.4-10.4); Monocytes # (auto) 1.17 K/uL (0.11-0.59); Monocytes % (auto) 8.8 %; Neutrophils # (auto) 11.33 K/uL (1.4-6.5); Neutrophils % (auto) 85.3 %; Platelet Count 191 K/uL (130-400); RDW Coefficient of Variation 11.9 % (11.5-14.5); RDW Standard Deviation 41.4 fL (36.4-46.3); Red Blood Count 2.85 M/uL (4.7-6.1); White Blood Count 13.27 K/uL (4.8-10.8)
[2020-05-28 07:28] LABS: BUN Creatinine Ratio 8.8 (10-20); Calcium 7.4 mg/dl (8.5-10.1); Creatinine Clr Calc Pharmacy 66.1 ml/min; Est GFR (African American) 72.8; Est GFR (Non-African American) 62.8; Potassium 3.5 mmol/L (3.5-5.1)
[2020-05-28] MEDS ORDERED: VANCOMYCIN HCL 1,000 MG in SODIUM CHLORIDE 0.9% 250 ML IV SCH (08:00)
[2020-05-28] MEDS ORDERED: FINASTERIDE 5 MG TAB PO SCH (09:00)
[2020-05-28] MEDS: INSULIN GLARGINE SOLOSTAR 100 UNITS/ML 3 ML PEN SC SCH ×2 (09:30→21:05)
[2020-05-28] MEDS: INSULIN ASPART 100 UNITS/ML 3 ML PEN SC SCH ×4 (09:30→21:06)
[2020-05-28] MEDS: SODIUM CHLORIDE 1 GM TABLET PO SCH ×3 (09:41→20:13)
[2020-05-28] MEDS: lisinopril 5 MG TAB PO SCH (09:41)
[2020-05-28] MEDS: GABAPENTIN 300 MG CAP PO SCH ×2 (09:41→20:13)
[2020-05-28] MEDS: FUROSEMIDE 20 MG TAB PO SCH (09:42)
--- NOTE | 2020-05-28 16:18 | Hospitalist Progress Note ---
Date of Service May 28, 2020 Assessment & Plan (1) Sepsis: Admission Date: May 27, 2020 69 yo M w/ pMHx. of DM II, BPH with urinary retention, HTN presenting with weakness, fevers along with UA concerning for urosepsis Complicated UTI possibly secondary to urinary retention and/or catheterization previously UA w/ 3+ bacteria, LCE, WBC & lactate 1.7 - initially on Vancomycin and Zosyn, stop the Vanco as urine culture with GN bacilli - WBC is down to 13k, no fever today, eating well, feels better overall discussed that if urine culture shows something that is sensitive to PO antibiotics, could likely d/c to home tomorrow he agrees with this plan Acute metabolic encephalopathy likely 2/2 acute infection - resolved, he is AAOX3, fully aware of recent issues Hyponatremia 124 on admission, mild symptoms of fatigue, acute on chronic euvolemic - continue home salt tabs, received 2L NSS in the ED - Na up to 131 today BPH with urinary retention - order for bladder scan as needed - continue home meds including finasteride and Terazosin - he can urinate, admits that stream is weak and he does not completely empty bladder wants to avoid any further catheterization if possible DM II, on steroids - held home oral meds - ordered sliding scale and basal - continue to monitor BSG, no hypoglycemic episodes HTN - continue home Lisinopril DVT: SCD's and ambulation Code: full Diet: CC DMII (2) Acute dehydration: (3) UTI (urinary tract infection): (4) Diabetes: (5) HTN (hypertension): (6) BPH (benign prostatic hyperplasia): (7) Acute hyponatremia: Admission and Anticipated Discharge Date Admission Date: May 27, 2020 Subjective patient feeling much better the past 24 hours, no fever, WBC coming down urine culture with GN bacilli, will stop Vanco, d/w pharmacy he is eating well, no chest pain, no dyspnea, no cough he is urinating okay ever since the mejia was removed last week, but stream could be stronger no dysuria, no hematuria, no suprapubic pain Review of Systems Review of Systems: All systems reviewed & are unremarkable except as noted in Subjective Physical Exam Constitutional: WD/WN, vitals as above Neck: trachea midline, no thyromegaly Respiratory: normal respiratory effort, lungs clear to auscultation Cardiovascular: RRR, no murmur, no edema Gastrointestinal (Abdomen): normal bowel sounds, soft, nontender, no hepatosplenomegaly Musculoskeletal: no cyanosis or clubbing, extremities motor strength 5/5 Skin: no rashes, warm and dry Neurologic: patellar DTR's 2+ bilat, sensation intact and PERRL, EOMI, accommodation nl, no face palsy, no dysarthria Psychiatric: A+Ox3, euthymic affect Lymphatic: no cervical or axillary lymphadenopathy Results & Data Results & Data ([facility]) Vital Signs (Past 12 Hours) Vital Signs Temp Pulse Pulse Resp BP BP Pulse Ox 05/28/20 15:08 36.5 C 90 18 125/75 98 05/28/20 09:40 77 127/81 05/28/20 06:57 37 C 80 18 134/76 93 Laboratory Results Laboratory Results - last 24 hr 05/27/20 05/27/20 05/27/20 18:57 18:57 18:57 WBC 18.94 H RBC 3.27 L Hgb 11.5 L Hct 31.1 L MCV 95.1 MCH 35.2 H MCHC 37.0 H RDW Std Deviation 41.1 RDW Coeff of Ike 11.9 Plt Count 214 MPV 8.9 Immature Gran % (Auto) 0.3 Neut % (Auto) 88.2 Lymph % (Auto) 7.0 Clayton % (Auto) 4.3 Eos % (Auto) 0.1 Baso % (Auto) 0.1 Neut # (Auto) 16.71 H Lymph # (Auto) 1.33 Clayton # (Auto) 0.82 H Eos # (Auto) 0.02 Baso # (Auto) 0.01 Immature Gran # (Auto) 0.05 H PT 9.8 INR 1.0 APTT 26.6 PTT Ratio 1.0 Sodium 124 L Potassium 3.7 Chloride 92 L Carbon Dioxide 25 Anion Gap 8.0 BUN 13 Creatinine 1.38 Est Cr Clr Drug Dosing 53.6 Est GFR ( Amer) 60.9 Est GFR (Non-Af Amer) 52.5 BUN/Creatinine Ratio 9.3 L Glucose 227 H POC Glucose Osmolality Lactate Calcium 9.0 Magnesium 1.3 L Total Bilirubin 0.7 AST 9 L ALT 21 Alkaline Phosphatase 76 Ammonia Troponin I < 0.015 Total Protein 6.4 Albumin 3.3 L Globulin 3.1 Albumin/Globulin Ratio 1.1 Procalcitonin Urine Color Urine Appearance Urine pH Ur Specific [place] Urine Protein Urine Glucose (UA) Urine Ketones Urine Blood Urine Nitrite Urine Bilirubin Urine Urobilinogen Ur Leukocyte Esterase Urine WBC (Auto) Urine RBC (Auto) U Hyaline Cast (Auto) U Epithel Cells (Auto) Urine Bacteria (Auto) Urine Osmolality Nasal Screen MRSA (PCR) COVID-19 Eval Order SARS-CoV-2 (PCR) Influenza Type A (PCR) Influenza Type B (PCR) RSV (RT-PCR) 05/27/20 05/27/20 05/27/20 18:57 19:18 19:18 WBC RBC Hgb Hct MCV MCH MCHC RDW Std Deviation RDW Coeff of Ike Plt Count MPV Immature Gran % (Auto) Neut % (Auto) Lymph % (Auto) Clayton % (Auto) Eos % (Auto) Baso % (Auto) Neut # (Auto) Lymph # (Auto) Clayton # (Auto) Eos # (Auto) Baso # (Auto) Immature Gran # (Auto) PT INR APTT PTT Ratio Sodium Potassium Chloride Carbon Dioxide Anion Gap BUN Creatinine Est Cr Clr Drug Dosing Est GFR ( Amer) Est GFR (Non-Af Amer) BUN/Creatinine Ratio Glucose POC Glucose Osmolality Lactate 1.7 Calcium Magnesium Total Bilirubin AST ALT Alkaline Phosphatase Ammonia 12.5 Troponin I Total Protein Albumin Globulin Albumin/Globulin Ratio Procalcitonin 0.30 Urine Color Urine Appearance Urine pH Ur Specific [place] Urine Protein Urine Glucose (UA) Urine Ketones Urine Blood Urine Nitrite Urine Bilirubin Urine Urobilinogen Ur Leukocyte Esterase Urine WBC (Auto) Urine RBC (Auto) U Hyaline Cast (Auto) U Epithel Cells (Auto) Urine Bacteria (Auto) Urine Osmolality Nasal Screen MRSA (PCR) COVID-19 Eval Order SARS-CoV-2 (PCR) Influenza Type A (PCR) Influenza Type B (PCR) RSV (RT-PCR) 05/27/20 05/27/20 05/27/20 19:18 19:25 19:25 WBC RBC Hgb Hct MCV MCH MCHC RDW Std Deviation RDW Coeff of Ike Plt Count MPV Immature Gran % (Auto) Neut % (Auto) Lymph % (Auto) [place] % (Auto) Eos % (Auto) Baso % (Auto) Neut # (Auto) Lymph # (Auto) [place] # (Auto) Eos # (Auto) Baso # (Auto) Immature Gran # (Auto) PT INR APTT PTT Ratio Sodium Potassium Chloride Carbon Dioxide Anion Gap BUN Creatinine Est Cr Clr Drug Dosing Est GFR ( Amer) Est GFR (Non-Af Amer) BUN/Creatinine Ratio Glucose POC Glucose Osmolality 269 L Lactate Calcium Magnesium Total Bilirubin AST ALT Alkaline Phosphatase Ammonia Troponin I Total Protein Albumin Globulin Albumin/Globulin Ratio Procalcitonin Urine Color Urine Appearance Urine pH Ur Specific [place] Urine Protein Urine Glucose (UA) Urine Ketones Urine Blood Urine Nitrite Urine Bilirubin Urine Urobilinogen Ur Leukocyte Esterase Urine WBC (Auto) Urine RBC (Auto) U Hyaline Cast (Auto) U Epithel Cells (Auto) Urine Bacteria (Auto) Urine Osmolality Nasal Screen MRSA (PCR) COVID-19 Eval Order CovFluRsv at [facility] SARS-CoV-2 (PCR) NEGATIVE Influenza Type A (PCR) Negative Influenza Type B (PCR) Negative RSV (RT-PCR) Negative 05/27/20 05/27/20 05/27/20 19:25 21:10 21:10 WBC RBC Hgb Hct MCV MCH MCHC RDW Std Deviation RDW Coeff of Ike Plt Count MPV Immature Gran % (Auto) Neut % (Auto) Lymph % (Auto) [place] % (Auto) Eos % (Auto) Baso % (Auto) Neut # (Auto) Lymph # (Auto) [place] # (Auto) Eos # (Auto) Baso # (Auto) Immature Gran # (Auto) PT INR APTT PTT Ratio Sodium Potassium Chloride Carbon Dioxide Anion Gap BUN Creatinine Est Cr Clr Drug Dosing Est GFR ( Amer) Est GFR (Non-Af Amer) BUN/Creatinine Ratio Glucose POC Glucose Osmolality Lactate Calcium Magnesium Total Bilirubin AST ALT Alkaline Phosphatase Ammonia Troponin I Total Protein Albumin Globulin Albumin/Globulin Ratio Procalcitonin Urine Color Yellow Urine Appearance Clear Urine pH 6.5 Ur Specific [place] 1.014 Urine Protein Trace H Urine Glucose (UA) 1+ H Urine Ketones Trace H Urine Blood 1+ H Urine Nitrite Negative Urine Bilirubin Negative Urine Urobilinogen Negative Ur Leukocyte Esterase 2+ H Urine WBC (Auto) >30 H Urine RBC (Auto) 0-4 U Hyaline Cast (Auto) 0 U Epithel Cells (Auto) 0-5 Urine Bacteria (Auto) 3+ H Urine Osmolality 334 L Nasal Screen MRSA (PCR) Negative COVID-19 Eval Order SARS-CoV-2 (PCR) Influenza Type A (PCR) Influenza Type B (PCR) RSV (RT-PCR) 05/28/20 05/28/20 05/28/20 06:29 06:29 08:04 WBC 13.27 H RBC 2.85 L Hgb 9.8 L Hct 27.1 L MCV 95.1 MCH 34.4 H MCHC 36.2 H RDW Std Deviation 41.4 RDW Coeff of Ike 11.9 Plt Count 191 MPV 8.9 Immature Gran % (Auto) 0.2 Neut % (Auto) 85.3 Lymph % (Auto) 4.6 Clayton % (Auto) 8.8 Eos % (Auto) 0.9 Baso % (Auto) 0.2 Neut # (Auto) 11.33 H Lymph # (Auto) 0.61 L Clayton # (Auto) 1.17 H Eos # (Auto) 0.12 Baso # (Auto) 0.02 Immature Gran # (Auto) 0.02 PT INR APTT PTT Ratio Sodium 131 L D Potassium 3.5 Chloride 99 Carbon Dioxide 26 Anion Gap 6.0 BUN 11 Creatinine 1.19 Est Cr Clr Drug Dosing 66.1 Est GFR ( Amer) 72.8 Est GFR (Non-Af Amer) 62.8 BUN/Creatinine Ratio 8.8 L Glucose 189 H POC Glucose 214 H Osmolality Lactate Calcium 7.4 L D Magnesium Total Bilirubin AST ALT Alkaline Phosphatase Ammonia Troponin I Total Protein Albumin Globulin Albumin/Globulin Ratio Procalcitonin Urine Color Urine Appearance Urine pH Ur Specific [place] Urine Protein Urine Glucose (UA) Urine Ketones Urine Blood Urine Nitrite Urine Bilirubin Urine Urobilinogen Ur Leukocyte Esterase Urine WBC (Auto) Urine RBC (Auto) U Hyaline Cast (Auto) U Epithel Cells (Auto) Urine Bacteria (Auto) Urine Osmolality Nasal Screen MRSA (PCR) COVID-19 Eval Order SARS-CoV-2 (PCR) Influenza Type A (PCR) Influenza Type B (PCR) RSV (RT-PCR) 05/28/20 11:50 WBC RBC Hgb Hct MCV MCH MCHC RDW Std Deviation RDW Coeff of Ike Plt Count MPV Immature Gran % (Auto) Neut % (Auto) Lymph % (Auto) [place] % (Auto) Eos % (Auto) Baso % (Auto) Neut # (Auto) Lymph # (Auto) [place] # (Auto) Eos # (Auto) Baso # (Auto) Immature Gran # (Auto) PT INR APTT PTT Ratio Sodium Potassium Chloride Carbon Dioxide Anion Gap BUN Creatinine Est Cr Clr Drug Dosing Est GFR ( Amer) Est GFR (Non-Af Amer) BUN/Creatinine Ratio Glucose POC Glucose 195 H Osmolality Lactate Calcium Magnesium Total Bilirubin AST ALT Alkaline Phosphatase Ammonia Troponin I Total Protein Albumin Globulin Albumin/Globulin Ratio Procalcitonin Urine Color Urine Appearance Urine pH Ur Specific [place] Urine Protein Urine Glucose (UA) Urine Ketones Urine Blood Urine Nitrite Urine Bilirubin Urine Urobilinogen Ur Leukocyte Esterase Urine WBC (Auto) Urine RBC (Auto) U Hyaline Cast (Auto) U Epithel Cells (Auto) Urine Bacteria (Auto) Urine Osmolality Nasal Screen MRSA (PCR) COVID-19 Eval Order SARS-CoV-2 (PCR) Influenza Type A (PCR) Influenza Type B (PCR) RSV (RT-PCR) Medications Administered Current Inpatient Medications Acetaminophen (Acetaminophen 325 Mg Tab) 650 mg PO Q4H PRN PRN Reason: pain/fever Stop: 06/26/20 23:39 Dextrose (Dextrose 50% 50 Ml Syringe) 25 - 50 ml IV UD PRN; Protocol PRN Reason: Hypoglycemia Protocol Stop: 06/26/20 23:47 Finasteride (Finasteride 5 Mg Tab) 5 mg PO PM HEATHER Stop: 06/27/20 00:00 Last Admin: 05/28/20 00:16 Dose: 5 mg Documented by: Furosemide (Furosemide 20 Mg Tab) 20 mg PO DAILY HEATHER Stop: 06/27/20 08:59 Last Admin: 05/28/20 09:42 Dose: 20 mg Documented by: Gabapentin (Gabapentin 300 Mg Cap) 300 mg PO AMHS HEATHER Stop: 06/27/20 08:59 Last Admin: 05/28/20 09:41 Dose: 300 mg Documented by: Glucagon (Glucagon For Inj 1 Mg Vial) 1 mg SQ UD PRN; Protocol PRN Reason: Hypoglycemia Protocol Stop: 06/26/20 23:47 Glucose (Glucose 10 Tabs/Tube) 4 - 8 tabs PO UD PRN; Protocol PRN Reason: Hypoglycemia Protocol Stop: 06/26/20 23:47 Glucose (Glucose 40% Gel 15 Gm Tube) 15 - 30 gm PO UD PRN; Protocol PRN Reason: Hypoglycemia Protocol Stop: 06/26/20 23:47 Piperacillin Sod/Tazobactam (Sod 3.375 gm/ Dextrose) 115 mls @ 28.75 mls/hr IV Q8H [facility]; Protocol Stop: 06/07/20 00:00 Last Infusion: 05/28/20 12:24 Dose: Infused Documented by: Insulin Aspart (Insulin Aspart 100 Units/Ml 3 Ml Pen) 0 units SC ACHS [facility] Stop: 06/27/20 07:29 Last Admin: 05/28/20 13:06 Dose: 2 units Documented by: Insulin Glargine (Insulin Glargine Solostar 100 Units/Ml 3 Ml Pen) 5 units SC BID [facility] Stop: 06/27/20 08:59 Last Admin: 05/28/20 09:30 Dose: 5 units Documented by: Lisinopril (Lisinopril 5 Mg Tab) 5 mg PO DAILY [facility] Stop: 06/27/20 08:59 Last Admin: 05/28/20 09:41 Dose: 5 mg Documented by: Miscellaneous (Carbohydrates For Hypoglycemia ) 15 - 30 gm PO UD PRN PRN Reason: Hypoglycemia Protocol Stop: 06/26/20 23:47 Miscellaneous Information (Piperacill/Tazobac Consult Active) 1 ea N/A UD PRN PRN Reason: Consult Stop: 06/26/20 18:47 Mycophenolate Mofetil (Mycophenolate Mofetil 250 Mg Cap) 1,000 mg PO BID PRN PRN Reason: NEEDED Stop: 06/26/20 23:39 Polyethylene Glycol (Polyethylene (Miralax) 17 Gm Pack) 17 gm PO DAILY PRN PRN Reason: Constipation Stop: 06/26/20 23:39 Sodium Chloride (Sodium Chloride 1 Gm Tablet) 2 gm PO TID [facility] Stop: 06/27/20 08:59 Last Admin: 05/28/20 14:37 Dose: 2 gm Documented by: Terazosin HCl (Terazosin Hcl 5 Mg Cap) 10 mg PO HS [facility] Stop: 06/27/20 20:59 Triamcinolone Acetonide (Triamcinolone Acet 0.1% Oint 15 Gm Tube) 1 appln TOP BID PRN PRN Reason: flare ups Stop: 06/26/20 23:39 PG Care Time/CCT Total # of Minutes Spent Total Time Spent with Patient: Total time spent is greater than 50% in coordination of care (as documented) at patient's floor/unit and/or counseling patient: Coding Level of Care Code 73451 Subseq Hosp Care Lvl 3 Diagnoses Sepsis A41.9 Sepsis acute organ dysfunction status: without acute organ dysfunction Sepsis type: sepsis due to unspecified organism Acute dehydration E86.0 UTI (urinary tract infection) N39.0 Diabetes E11.9 HTN (hypertension) I10 BPH (benign prostatic hyperplasia) N40.0 Acute hyponatremia E87.1 (1) Sepsis Sepsis acute organ dysfunction status: without acute organ dysfunction Sepsis type: sepsis due to unspecified organism Qualified Code(s): A41.9 - Sepsis, unspecified organism
[2020-05-28] MEDS ORDERED: VANCOMYCIN HCL 1,250 MG in SODIUM CHLORIDE 0.9% 250 ML IV SCH (18:00)
[2020-05-28] MEDS ORDERED: TERAZOSIN HCL 5 MG CAP PO SCH (21:00)
[2020-05-29] MEDS: PIPERACILLIN/TAZOBACTAM 3.375 GM in DEXTROSE 5% 100 ML IV SCH ×2 (00:02→09:15)
--- NOTE | 2020-05-29 04:15 | Billing Data ---
Date of Service May 29, 2020 Coding Level of Care Code 26785 Initial Inpt Care Lvl 3
--- NOTE | 2020-05-29 05:39 | Electrocardiogram Report ---
Test Reason : Blood Pressure : / mmHG Vent. Rate : 119 BPM Atrial Rate : 119 BPM P-R Int : 126 ms QRS Dur : 074 ms QT Int : 302 ms P-R-T Axes : 062 008 068 degrees QTc Int : 424 ms Poor data quality, interpretation may be adversely affected Sinus tachycardia Nonspecific T wave abnormality Abnormal ECG When compared with ECG of 06-AUG-2014 09:15, Vent. rate has increased BY [address] no longer elevated in Inferior leads Nonspecific T wave abnormality now evident in Anterior leads Confirmed by Jean Cruz ([id number]) on 05/29/2020 5:39:01 AM Referred By: REFERRED SELF Confirmed By:Jean Cruz
[2020-05-29] MEDS ORDERED: VANCOMYCIN TROUGH ONE ×2 (07:30→17:30)
[2020-05-29] MEDS: lisinopril 5 MG TAB PO SCH (09:08)
[2020-05-29] MEDS: FUROSEMIDE 20 MG TAB PO SCH (09:09)
[2020-05-29] MEDS: GABAPENTIN 300 MG CAP PO SCH (09:09)
[2020-05-29] MEDS: SODIUM CHLORIDE 1 GM TABLET PO SCH ×2 (09:09→13:21)
[2020-05-29] MEDS: INSULIN GLARGINE SOLOSTAR 100 UNITS/ML 3 ML PEN SC SCH (09:10)
[2020-05-29] MEDS: INSULIN ASPART 100 UNITS/ML 3 ML PEN SC SCH ×2 (09:11→12:51)
--- NOTE | 2020-05-29 12:17 | Discharge Summary ---
Date of Service May 29, 2020 Admission HPI Per Admitting Provider Jean-Pierre Burgos is here for increasing weakness and fever. He had a fever a couple days ago and was in the hospital last on Tuesday when he had a catheter placed due to BPH. He has been confused and forgetting things and dehydrated. He endorses dysuria and urgency without frequency. He has not had much PO intake lately. He has been on steroids for a rash that was started by his primary team. He has a history of low sodium and no clear diagnosis on prior evaluations. The lowest his sodium has been was 128 in the past. ED course: 2L fluid bolus vanc and zosyn started Principal Diagnosis UTI with sepsis Discharge Exam Constitutional WD/WN, vitals as above Neck trachea midline, no thyromegaly Respiratory normal respiratory effort, lungs clear to auscultation Cardiovascular RRR, no murmur, no edema Gastrointestinal (Abdomen) normal bowel sounds, soft, nontender, no hepatosplenomegaly Musculoskeletal no cyanosis or clubbing, extremities motor strength 5/5 Skin no rashes, warm and dry Neurologic patellar DTR's 2+ bilat, sensation intact and PERRL, EOMI, accommodation nl, no face palsy, no dysarthria Psychiatric A+Ox3, euthymic affect Lymphatic no cervical or axillary lymphadenopathy Discharge Data Allergies Allergy/AdvReac Type Severity Reaction Status Date / Time adhesive Allergy Unknown very Verified 05/27/20 21:01 senstive skin Consultations 05/27/20 21:09 ED Decision to Admit Stat Hospital Course (1) Sepsis: Admission Date: May 27, 2020 69 yo M w/ pMHx. of DM II, BPH with urinary retention, HTN presenting with weakness, fevers along with UA concerning for urosepsis Complicated UTI possibly secondary to urinary retention and/or catheterization previously (during last hospitalization for retention) UA w/ 3+ bacteria, LCE, WBC & lactate 1.7 - initially on Vancomycin and Zosyn, stop the Vanco as urine culture with GN bacilli - WBC is down to normal, no fever, eating well, feels better overall final urine culture with E coli, jean sensitive discharge to home on Cipro 500mg BID for 7 more days Acute metabolic encephalopathy likely 2/2 acute infection - resolved, he is AAOX3, fully aware of recent issues Hyponatremia 124 on admission, mild symptoms of fatigue, acute on chronic euvolemic - continue home salt tabs, received 2L NSS in the ED - Na up to normal on discharge BPH with urinary retention - continue home meds including finasteride and Terazosin - he can urinate, admits that stream is weak and he does not completely empty bladder wants to avoid any further catheterization if possible DM II, on steroids - held home oral meds - ordered sliding scale and basal - continue to monitor BSG, no hypoglycemic episodes resume home regimen on discharge HTN - continue home Lisinopril DVT: SCD's and ambulation Code: full Diet: CC DMII (2) Acute dehydration: (3) UTI (urinary tract infection): (4) Diabetes: (5) HTN (hypertension): (6) BPH (benign prostatic hyperplasia): (7) Acute hyponatremia: Total Time Total Time Spent Total Time Spent (In Minutes): 32 Total Time Includes: Examination of the Patient, Discharge Planning and Medication Reconciliation Discharge Plan Discharge Items Patient Disposition: Home - Self-Care Reason For Visit: Urosepsis Discharge Diagnosis: Sepsis due to UTI Condition on Discharge: Good Goals: complete treatment for UTI improve strength and mobility Activity: Resume your previous activity Non-emergency contact: Primary Care Provider Call non-emergency contact if: you have any medication questions, your symptoms worsen and you have a fever Follow-up/Referrals: Link Castañeda MD [Primary Care Provider] - 06/05/20 9:50 am (next week) Diet: Carb Consistent or DM2 Addtl Attending Provider Instructions: Medications: - CIPROFLOXACIN: antibiotic for E coli UTI, start taking this evening, need to take for 7 days more - BENADRYL: stop taking this as can cause issues with urinary retention UTI, sepsis urine culture grew out E coli, blood cultures with no growth the E coli is jean sensitive, you were treated with Zosyn IV while here will change to Cipro 500mg twice a day for 7 more days no fever, vitals stable, WBC trending down stay well hydrated, well nourished Weakness: prescribed rolling walker for you to use at home Pending Studies at Discharge: No Stand-Alone Forms: My [employer], Smoking Cessation Medications and DC Order Prescriptions: New ciprofloxacin HCl 500 mg tablet 500 mg PO BID Qty: 14 RF: 0 Continued lisinopril 5 mg tablet 5 mg PO DAILY RF: 0 terazosin 10 mg capsule 10 mg PO HS RF: 0 finasteride [Proscar] 5 mg tablet 5 mg PO DAILY RF: 0 carboxymethylcellulose sodium [Refresh Liquigel] 1 % drops, liquid gel 2 drops OP DAILY PRN (Reason: Dry Eyes) RF: 0 linagliptin [Tradjenta] 5 mg tablet 5 mg PO QAM RF: 0 triamcinolone acetonide 0.1 % ointment 1 appln TOP BID PRN (Reason: flare ups) RF: 0 metformin [Glucophage] 1,000 mg tablet 1,000 mg PO QAM RF: 0 furosemide [Lasix] 20 mg tablet 20 mg PO DAILY RF: 0 sodium chloride 1 gram tablet 2,000 mg PO TID RF: 0 gabapentin 300 mg capsule 300 mg PO AMHS RF: 0 mycophenolate mofetil [CellCept] 500 mg tablet 1,000 mg PO BID PRN (Reason: NEEDED) RF: 0 metformin 1,000 mg tablet 1,500 mg PO QPM RF: 0 Discontinued diphenhydramine HCl [Benadryl Allergy] 25 mg tablet 25 mg PO AMHS RF: 0 Discharge Orders: Discharge Order (Routine); Ordered 05/29/20 Ordered By: Merlin Infante/Other Patient Handouts: E. Coli Infection, Urinary Tract Infections in Men, Ciprofloxacin tablets Admission Data Admit Date/Time: 05/27/20 22:43 Attending Provider: Merlin Vegas Admit Provider: Rogelio Romano Primary Care Provider: Link Castañeda Other Providers: Demario Ngo Other Interventions: Discharge Summary Assessment (RN) Last Done: 05/29/20 12:17 Supervising Physician Co-Signing Physician Notes Attending addendum: I have physically seen this patient, have supervised the medical residents activities, and agree with the H&P unless as otherwise noted. Assessment and Plan: UTI/BPH with LUTS urinary retention- Continue empiric vancomycin and Zosyn begun in the ED Continue finasteride and Terazosin Follow urine culture and sensitivities Follow blood cultures Acute metabolic encephalopathy- Likely secondary to UTI Continue to biotics as noted, hydrate with IV fluids and follow clinically Hyponatremia- Chronic condition Sodium 124 upon admission serum osmolality 269, urine awesome 334. Has already received 2 L of normal saline from the ED Repeat laboratories in a.m. Continue home salt tablets Remaining orders and notations as noted Coding Level of Care Code D/C Day Management >30 mins Diagnoses Sepsis A41.9 Sepsis acute organ dysfunction status: without acute organ dysfunction Sepsis type: sepsis due to unspecified organism Acute dehydration E86.0 UTI (urinary tract infection) N39.0 Diabetes E11.9 HTN (hypertension) I10 BPH (benign prostatic hyperplasia) N40.0 Acute hyponatremia E87.1
== END 2020-05-29 16:19 | disposition home or self-care (01) | DRG 871 ==
LOC: ED 18:24 → SUATTDRO 22:43 → 3N 22:43